=== PATIENT | female | born 1960 | race Caucasian/White ===

== ENCOUNTER 2018-02-11 15:44 | Outpatient (CLI) | payer OTHER | END 2018-02-11 15:45 | disposition home or self-care (01) | LOC: BICRAD 15:44 | PROVIDERS: ATTEND Nurse Practitioner Family | DX: R10.9 Unspecified abdominal pain (principal) | CPT/HCPCS: 74018 ==

== ENCOUNTER 2018-02-28 08:07 | Outpatient (CLI) | payer OTHER ==
[~2018-02-28 08:07] MED LIST: ISOVUE-370 76%-LOCM 1 ML ONE
== END 2018-02-28 08:08 | disposition home or self-care (01) ==
LOC: BICCT 08:07
PROVIDERS: ATTEND Obstetrics & Gynecology
DX: Z12.31 Encounter for screening mammogram for malignant neoplasm of breast (principal); R31.29 Other microscopic hematuria; R10.9 Unspecified abdominal pain; N28.1 Cyst of kidney, acquired; K76.89 Other specified diseases of liver; Z87.442 Personal history of urinary calculi
CPT/HCPCS: 74178; 77063; 77067

== ENCOUNTER 2019-04-17 13:30 | Outpatient (CLI) | payer OTHER ==
--- NOTE | 2019-04-17 14:30 | MMO ---
Bilateral MAMMO Bilat Screen [facility]. CLINICAL HISTORY: Patient is 59 years old and is seen for screening. The patient has no family history of breast cancer. The patient has no personal history of cancer. VIEWS: The views performed were: bilateral craniocaudal with tomosynthesis and bilateral mediolateral oblique with tomosynthesis. FILMS COMPARED: The present examination has been compared to prior imaging studies performed at [facility] on 02/22/2017 and 02/28/2018, and at [facility] on 09/11/2011 and 10/21/2012. MAMMOGRAM FINDINGS: The breasts are heterogeneously dense, which could obscure a lesion on mammography. There are no suspicious masses, suspicious calcifications, or new areas of architectural distortion. IMPRESSION: THERE IS NO MAMMOGRAPHIC EVIDENCE OF MALIGNANCY. A ROUTINE FOLLOW-UP MAMMOGRAM IN 1 YEAR IS RECOMMENDED. THE RESULTS OF THIS EXAM WERE SENT TO THE PATIENT. ACR BI-RADS Category 1 - Negative MAMMOGRAPHY NOTE: 1. A negative mammogram report should not delay a biopsy if a dominant of clinically suspicious mass is present. 2. Approximately 10% to 15% of breast cancers are not detected by mammography. 3. Adenosis and dense breasts may obscure an underlying neoplasm.
--- NOTE | 2019-04-17 15:10 | ULT ---
RENAL ULTRASOUND: HISTORY: Renal cyst. COMPARISON: None. TECHNIQUE: Sagittal and transverse imaging of the kidneys is performed. FINDINGS: The right kidney measures 8.9 x 4.8 x 4.4 cm. No hydronephrosis. The left kidney measures 4.8 x 4.7 x 10.8 cm. No hydronephrosis. There are multiple anechoic foci in the left renal cortex. The largest anechoic foci are in the upper pole of the left kidney measur ing 3.1 x 3.1 x 3.2 and 2.8 x 2.8 x 2.5 cm. Renal cortical cysts are favored. Renal ultrasound has a normal mucosal appearance. Prevoid volume is 149 mL. IMPRESSION: Exophytic cyst emanating from the upper pole of the left renal cortex. Additional smaller cortical c ysts are noted. POS: [facility]
== END 2019-04-17 13:31 | disposition home or self-care (01) ==
LOC: BICULT 13:30
PROVIDERS: ATTEND Urology
DX: Z12.31 Encounter for screening mammogram for malignant neoplasm of breast (principal); Q61.3 Polycystic kidney, unspecified; Z87.442 Personal history of urinary calculi
CPT/HCPCS: 76770; 77063; 77067

== ENCOUNTER 2020-05-15 11:59 | Outpatient (CLI) | payer OTHER ==
--- NOTE | 2020-05-15 13:03 | ULT ---
Exam: Bilateral renal ultrasound HISTORY: Microhematuria. Complex cyst. COMPARISON: 04/17/2019 FINDINGS: Right kidney: Normal cortical echotexture. No hydronephrosis. Right kidney measurements: 4.5 x 4.5 x 9.5 cm. Left kidney: Normal cortical echotexture. Multiple anechoic foci involving the left renal cortex. Lar gest focus is exophytic at the level of the upper pole and measures 3.2 x 3.4 x 0.6 cm. No hydronephrosis. Left kidney measurements 5.4 x 5.0 x 9.8 cm. Urinary bladder: Normal mucosa. Limited evaluation due to inadequate distention. 28 mL volume IMPRESSION: 1. No hydronephrosis 2. Multiple left renal cortical cysts. Largest cyst is again noted in the upper pole of the left kidn ey without appreciable change. 3. Renal mass protocol CT/hematuria protocol CT if clinically warranted.
--- NOTE | 2020-05-15 14:16 | MMO ---
Bilateral MAMMO Bilat Screen [facility]. CLINICAL HISTORY: Patient is 60 years old and is seen for screening. The patient has no family history of breast cancer. The patient has no personal history of cancer. VIEWS: The views performed were: bilateral craniocaudal with tomosynthesis and bilateral mediolateral oblique with tomosynthesis. FILMS COMPARED: The present examination has been compared to prior imaging studies performed at [facility] on 02/22/2017, 02/28/2018 and 04/17/2019, and at [facility] on 10/21/2012. This study has been interpreted with the assistance of computer-aided detection. MAMMOGRAM FINDINGS: The breasts are heterogeneously dense, which could obscure a lesion on mammography. There are no suspicious masses, suspicious calcifications, or new areas of architectural distortion. IMPRESSION: THERE IS NO MAMMOGRAPHIC EVIDENCE OF MALIGNANCY. A ROUTINE FOLLOW-UP MAMMOGRAM IN 1 YEAR IS RECOMMENDED. THE RESULTS OF THIS EXAM WERE SENT TO THE PATIENT. ACR BI-RADS Category 1 - Negative MAMMOGRAPHY NOTE: 1. A negative mammogram report should not delay a biopsy if a dominant of clinically suspicious mass is present. 2. Approximately 10% to 15% of breast cancers are not detected by mammography. 3. Adenosis and dense breasts may obscure an underlying neoplasm. Reported by: YUMIKO ALATORRE MD Electonically Signed: [id number]
== END 2020-05-15 12:00 | disposition home or self-care (01) ==
LOC: BICULT 11:59
PROVIDERS: ATTEND Urology
DX: Z12.31 Encounter for screening mammogram for malignant neoplasm of breast (principal); R31.29 Other microscopic hematuria; N28.1 Cyst of kidney, acquired
CPT/HCPCS: 76770; 77063; 77067; 81001; 87086

== ENCOUNTER 2023-09-27 08:41 | Outpatient (CLI) | payer BC | END 2023-09-27 08:42 | disposition home or self-care (01) | LOC: RAD 08:41 | PROVIDERS: ATTEND Internal Medicine Critical Care Medicine | DX: R06.00 Dyspnea, unspecified (principal) | CPT/HCPCS: 71046 ==

== ENCOUNTER 2023-12-17 13:47 | Outpatient (CLI) | payer BC, OTHER | END 2023-12-17 13:48 | disposition home or self-care (01) | LOC: BICMAMMO 13:47 | PROVIDERS: ATTEND Family Medicine | DX: Z13.820 Encounter for screening for osteoporosis (principal); M81.0 Age-related osteoporosis without current pathological fracture; M85.89 Other specified disorders of bone density and structure, multiple sites; Z78.0 Asymptomatic menopausal state | CPT/HCPCS: 77080 ==

== ENCOUNTER 2025-09-03 13:24 | Outpatient (CLI) | payer BC | END 2025-09-03 13:25 | disposition home or self-care (01) | LOC: CT 13:24 | PROVIDERS: ATTEND Family Medicine | DX: R05.3 Chronic cough (principal); R91.1 Solitary pulmonary nodule | CPT/HCPCS: 71250 ==